=== PATIENT | female | born 1960 | race Caucasian/White ===

== ENCOUNTER 2020-01-31 23:28 | Outpatient (CLI) | payer MEDICAID | END 2020-01-31 23:59 | disposition critical access hospital (66) | LOC: EMS 23:28 | PROVIDERS: ATTEND Surgery | DX: R07.89 Other chest pain (principal) | CPT/HCPCS: A0425; A0427; A0999 ==

== ENCOUNTER 2020-01-31 23:49 | Emergency (ER) | payer MEDICAID ==
[2020-01-31] MEDS ORDERED: ASPIRIN CHEW 81 MG TABLET PO STA (23:56)
--- NOTE | 2020-01-31 23:59 | ED Physician Documentation ---
History of Present Illness - Stated complaint Stated Complaint: CHEST PRESSURE - Additonal information Additional information: This is a 59-year-old female with a history of atrial fibrillation on warfarin, diabetes, hypertension, hyperlipidemia, who presents with chest pressure. Patient has had chest pressure on and off for 3 days, it radiates somewhat to her left shoulder, she sometimes has a feeling of tingling over her left shoulder. The pain resolved this morning but then recurred tonight when she was sitting on the couch watching a movie, so she told her daughter about the pain and they called the nurse hotline who told her to call 911, EMS arrived and transported her here. She received 2 tabs of nitroglycerin in route without any effect on her discomfort. She states she had a stress test around 5 years ago in [place] for similar symptoms and that was negative for signs of coronary artery disease, she did have atrial fibrillation diagnosed after that, and she is on warfarin and diltiazem. She denies any history of WI. She is visiting her daughter, typically she lives in [place]. No fever, cough, leg swelling. Review of Systems Constitutional: denies: Fever Nose: denies: Rhinorrhea / runny nose Throat: denies: Dental pain / toothache Cardiac: reports: Chest pain / pressure Respiratory: denies: Dyspnea GI: denies: Abdominal Pain : denies: Dysuria Neurologic: denies: Generalized weakness PD PAST MEDICAL HISTORY - Past Medical History Cardiovascular: Hypertension, High cholesterol, Atrial fibrillation - Allergies Allergies/Adverse Reactions: Allergies Allergy/AdvReac Type Severity Reaction Status Date / Time No Known Drug Allergies Allergy Verified 01/31/20 23:54 - Living Situation Living Situation: reports: With family Living Arrangement: reports: At home - Social History Does the pt smoke?: No PD ED PE NORMAL - Vitals Vital signs reviewed: Yes - General General: Alert and oriented X 3, No acute distress - HEENT HEENT: PERRL - Neck Neck: Supple, no meningeal sign - Cardiac Cardiac: RRR, No murmur - Respiratory Respiratory: Clear bilaterally - Abdomen Abdomen: Normal bowel sounds, Soft, Non tender, Non distended - Derm Derm: Warm and dry - Extremities Extremities: No deformity - Neuro Neuro: Alert and oriented X 3 - Psych Psych: Normal mood, Normal affect Results - Vitals Vitals: Vital Signs - 24 hr 01/31/20 01/31/2001/31/20 23:54 23:58 00:28 Temperature 37.0 C 37.0 C Heart Rate 83 83 66 Respiratory 16 16 17 Rate Blood Pressure 133/76 H 133/76 H 117/74 O2 Saturation 97 97 97 02/01/20 02/01/20 02/01/20 00:30 01:00 01:30 Temperature Heart Rate 61 73 Respiratory 17 16 Rate Blood Pressure 111/60 105/66 O2 Saturation 96 96 98 02/01/20 02/01/20 02:00 02:30 Temperature Heart Rate 75 62 Respiratory 19 17 Rate Blood Pressure 113/63 110/65 O2 Saturation 96 97 Oxygen O2 Source Room air - EKG (time done) 23:52 Other comments: Other comments (Rate 82, rhythm sinus, There is no significant ST elevation or depression, no abnormal T wave inversions. Intervals are within normal limits.) 2:28 Other comments: Other comments (Rate 71, rhythm sinus, there is no ST segment elevation or depression, no abnormal T wave inversions. Compared to EKG from earlier tonight, there is no significant change.) - Labs Labs: Laboratory Tests 02/01/20 02/01/20 02/01/20 00:30 00:30 00:30 WBC 5.8 RBC 4.44 Hgb 13.3 Hct 40.0 MCV 90.1 MCH 30.0 MCHC 33.3 RDW 13.2 Plt Count 234 MPV 9.5 Neut # (Auto) 2.6 Lymph # (Auto) 2.3 [place] # (Auto) 0.7 Eos # (Auto) 0.2 Baso # (Auto) 0.1 Absolute Nucleated RBC 0.00 Nucleated RBC % 0.0 PT 17.8 H INR 1.6 H Sodium 136 Potassium 4.0 Chloride 104 Carbon Dioxide 22 Anion Gap 10.0 BUN 28 H Creatinine 0.9 Estimated GFR (MDRD) 64 L Glucose 136 H Calcium 9.6 Total Bilirubin 0.4 AST 16 ALT 17 Alkaline Phosphatase 111 Troponin I High Sens Total Protein 7.6 Albumin 4.2 Globulin 3.4 Albumin/Globulin Ratio 1.2 Lipase 37 02/01/20 02/01/20 00:30 02:30 WBC RBC Hgb Hct MCV MCH MCHC RDW Plt Count MPV Neut # (Auto) Lymph # (Auto) [place] # (Auto) Eos # (Auto) Baso # (Auto) Absolute Nucleated RBC Nucleated RBC % PT INR Sodium Potassium Chloride Carbon Dioxide Anion Gap BUN Creatinine Estimated GFR (MDRD) Glucose Calcium Total Bilirubin AST ALT Alkaline Phosphatase Troponin I High Sens 3.0 3.5 Total Protein Albumin Globulin Albumin/Globulin Ratio Lipase - Rads (name of study) CXR Radiology: Other (No acute cardiopulmonary abnormality) PD MEDICAL DECISION MAKING - ED course Complexity details: considered differential (ACS, dysrhythmia, pneumonia, pneumothorax, pulmonary embolism, dissection) ED course: Patient is well-appearing on arrival, her exam is unremarkable, EKG shows no convincing signs of ischemia or dysrhythmia. She was given aspirin, labs were drawn, she was placed on the monitor. CBC unremarkable, CMP likewise unremarkable, her INR is a little low at 1.6, I shared this with the patient and she will follow-up with the provider who manages her anticoagulation to discuss changing her warfarin dose. She has no leg swelling, no tachycardia, normal oxygen saturation and given her anticoagulated status I highly doubt pulmonary embolism. 2 high-sensitivity troponins drawn 2 hours apart are both negative, and a repeat EKG shows no changes from the first. On repeat evaluation patient is pain-free, feeling well, and would like to go home. Given the description of her pain is resolution I highly doubt aortic dissection. Most concerning to me is ACS, and patient does have risk factors for coronary artery disease, and the description of radiation to the shoulder is somewhat concerning as well. More reassuring is the fact that the pain is not linked to exertion, and has been ongoing for 3 days with negative troponins. I discussed admission for further work-up including possible stress test, patient declines, states that she would like to go home and arrange close outpatient follow-up. Her writing manager is in [place], and I explained that may be difficult to get prompt follow-up if she is not established locally, patient understands and plans to establish locally with a PCP and a writing manager. Contact information for local groups was provided. She understands the risks of delayed diagnosis or missed diagnosis including the risk of WI by discharging home, but she does have concerns about coronavirus and does not want to stay in the hospital. She is very well- appearing at this time and certainly has capacity to make this decision. I reviewed return precautions with the patient, reviewed that she is always welcome in the emergency department for further evaluation, and she was discharged home in good condition in accordance with her wishes Departure - Departure Disposition: 01 Home, Self Care Clinical Impression: Chest pain Qualifiers: Chest pain type: unspecified Qualified Code(s): R07.9 - Chest pain, unspecified Condition: Good Follow-Up: [facility] [Provider Group] (Call tomorrow to establish care) [facility] [Other] ([facility] [address] [place] [address], [address] [place] [address] ) Comments: You were seen today for chest pain. Your EKG and labs (including 2 high- sensitivity troponin tests) were reassuring today, I do not see signs of a heart attack or other obvious emergent cause of your pain. As we discussed, you do have risk factors for coronary artery disease, and having a reassuring work-up in the emergency department does not rule out heart disease. If you are having any increased or worsening symptoms, Return to the emergency department for further work-up. You likely will need a another stress test, please contact your writing manager as soon as possible to discuss your symptoms and further work up. If you stay in the area please establish with a PCP and a writing manager locally, I have provided some contact info for providers in the area.
[2020-02-01 00:36] LABS: BASOPHILS # (AUTO) 0.1 10^3/uL (0.0-0.1); BASOPHILS % (AUTO) 0.9 %; EOSINOPHILS # (AUTO) 0.2 10^3/uL (0.0-0.7); EOSINOPHILS % (AUTO) 3.3 %; HGB - HEMOGLOBIN 13.3 g/dL (12.0-16.0); LYMPHOCYTES # (AUTO) 2.3 10^3/uL (1.5-3.5); MEAN CORPUSCULAR HGB CONC 33.3 g/dL (32.0-36.0); MEAN CORPUSCULAR VOLUME 90.1 fL (81.0-99.0); MEAN PLATELET VOLUME 9.5 fL (7.9-10.8); MONOCYTES # (AUTO) 0.7 10^3/uL (0.0-1.0); MONOCYTES % (AUTO) 11.2 %; NEUTROPHILS # (AUTO) 2.6 10^3/uL (1.5-6.6); NEUTROPHILS % (AUTO) 44.4 %; PLT - PLATELET COUNT 234 10^3/uL (130-450); RED BLOOD COUNT 4.44 10^6/uL (4.20-5.40); RED CELL DISTRIBUTION WIDTH 13.2 % (12.0-15.0); WHITE BLOOD COUNT 5.8 x10^3/uL (4.8-10.8)
[2020-02-01 00:43] LABS: INR 1.6 (0.8-1.2); PT - PROTHROMBIN TIME 17.8 secs (9.9-12.6)
[2020-02-01 00:50] LABS: ALBUMIN 4.2 g/dL (3.2-5.5); ALBUMIN/GLOBULIN RATIO 1.2 (1.0-2.2); BILIRUBIN,TOTAL 0.4 mg/dL (0.2-1.0); CALCIUM 9.6 mg/dL (8.5-10.3); CREATININE 0.9 mg/dL (0.4-1.0); TOTAL PROTEIN 7.6 g/dL (6.7-8.2)
--- NOTE | 2020-02-01 01:03 | XRAY Report ---
Reason: Chest Pain Procedure Date: 02/01/2020 Accession Number: [id number] / [id number] Procedure: XR - Chest 1 View X-Ray CPT Code: 69782 Final Report FULL RESULT: EXAM: CHEST RADIOGRAPHY EXAM DATE: 02/01/2020 12:14 AM. CLINICAL HISTORY: Chest Pain. COMPARISON: None. TECHNIQUE: 1 view. FINDINGS: Lungs/Pleura: No significant consolidation, effusion, or definite pneumothorax. Mediastinum: Cardiac silhouette is within normal limits when accounting for lung volumes and technique. Other: Moderate bilateral shoulder degenerative joint disease. IMPRESSION: No acute cardiopulmonary abnormality demonstrated. RADIA
[2020-02-01 02:56] VITALS: BP 110/65
== END 2020-02-01 03:19 | disposition home or self-care (01) ==
LOC: ED 23:49
DX: R07.9 Chest pain, unspecified (principal); I48.91 Unspecified atrial fibrillation; Z79.01 Long term (current) use of anticoagulants; E11.9 Type 2 diabetes mellitus without complications; I10 Essential (primary) hypertension; E78.00 Pure hypercholesterolemia, unspecified
CPT/HCPCS: 36415; 71045; 80053; 83690; 84484; 85025; 85610; 93005; 99284; A9270

== ENCOUNTER 2020-02-14 10:58 | Outpatient (CLI) | payer MEDICAID ==
[2020-02-14 13:17] LABS: INR 2.2 (0.8-1.2); PT - PROTHROMBIN TIME 23.6 secs (9.9-12.6)
[2020-02-14 13:34] LABS: HB2 TOTAL 14.2 g/dL; HEMOGLOBIN A1C 0.69 g/dL; HEMOGLOBIN A1C % 6.6 % (4.6-6.2)
== END 2020-02-14 23:59 | disposition home or self-care (01) ==
LOC: LAB.WCP 10:58
PROVIDERS: ATTEND Nurse Practitioner
DX: E78.5 Hyperlipidemia, unspecified (principal); E11.9 Type 2 diabetes mellitus without complications; Z79.01 Long term (current) use of anticoagulants; I48.91 Unspecified atrial fibrillation
CPT/HCPCS: 36415; 83036; 85610

== ENCOUNTER 2020-03-27 10:48 | Outpatient (CLI) | payer MEDICAID ==
--- NOTE | 2020-04-04 10:54 | Mammography Report ---
BILATERAL DIGITAL SCREENING MAMMOGRAM 3D/2D: 03/27/2020 CLINICAL: Routine screening. No prior exams were available for comparison. There are scattered fibroglandular elements in both br easts. There is an irregular asymmetry with a spiculated margin in the left breast middle depth lateral reji on seen on the craniocaudal view only. There also is a round asymmetry with an obscured margin in the left breast sub-areolar depth central to the nipple seen on the craniocaudal view only. Finding is seen only on tomography. No other significant masses, calcifications, or other findings are seen in either breast. IMPRESSION: INCOMPLETE: NEEDS ADDITIONAL IMAGING EVALUATION The irregular asymmetry in the left breast middle depth lateral region seen on the craniocaudal view only is indeterminate. Additional views with possible ultrasound are recommended. The round asymmetry in the left breast sub-areolar depth central to the nipple seen on the craniocaud al view only is indeterminate. Additional views with possible ultrasound are recommended. This exam was interpreted at Station ID: [id number]. NOTE: For mammograms, a report in lay terms will be sent to the patient. Approximately 15% of breast malignancies will not be visualized mammographically. In the management of a palpable breast mass, a negative mammogram must not discourage biopsy of a clinically suspicious lesion. Electronically Signed By: Valeria [email or web address]/[email or web address]:04/04/2020 09:06:13 ACR BI-RADS Category 0: Incomplete 3340F PARENCHYMAL PATTERN: (A) - The breast(s) demonstrate(s) scattered fibroglandular densities. BI-RADS CATEGORY: (0) - 0 Mammo and [place] [id number] Immediate follow-up LATERALITY: (B)
== END 2020-03-27 10:49 | disposition home or self-care (01) ==
LOC: DI 10:48
PROVIDERS: ATTEND Nurse Practitioner
DX: Z12.31 Encounter for screening mammogram for malignant neoplasm of breast (principal); R92.8 Other abnormal and inconclusive findings on diagnostic imaging of breast
CPT/HCPCS: 77063; 77067

== ENCOUNTER 2020-07-25 11:40 | Outpatient (CLI) | payer MEDICAID ==
[2020-07-25 12:25] VITALS: BP 109/61
--- NOTE | 2020-07-25 12:25 | SLEEP CARE CONSULTATION ---
Information from patient questionnaire entered by Lissa Zepeda. I have reviewed and concur with the information entered by Lissa Zepeda. This document represents the service I personally performed and the decisions made by me, Adwoa Stiles ARNP. History of Present Illness Service Date and Time: 07/25/2020 1140 Reason for Visit: New patient, Previously diagnosed sleep apnea, sleep apnea on CPAP therapy Chief Complaint: reports: Snoring, Observed pauses in breathing. denies: Insomnia, Unrefreshed sleep, Excessive daytime sleepiness, Fatigue, Frequent awakenings at night Date of Onset: 4 years Usual bedtime: 10pm Time it takes to fall asleep: 5-10 minutes Snores at night: Yes Observed to quit breathing while asleep: Yes Sleeps alone due to snoring: No Number of times waking at night: 1 Reasons for waking at night: reports: Bathroom. denies: Choking, Snoring, Gasping for air Toss, Turn, or Twitch while sleeping: Yes Recalls having dreams: Yes Usually gets out of bed at: 10 am Morning headache: No Sleepy or fatigued during the day: Yes Ever fallen asleep while driving: No Takes day naps: No Dreams during day naps: No Prior sleep studies: Yes Year and Where: 2015 - [facility] in [place], [place] Additional HPI information: SHARON GRIGSBY was diagnosed to have unknown, AHI unknown, obstructive sleep apnea-hypopnea syndrome and has come in today to establish care and maintenance of her CPAP therapy. She thinks her pressure is 4 cm H2O. She has been on CPAP since 2016. She has moved here from [place] and is staying with her daughter to help with grandchild. - Parasomnia Symptoms Ever been unable to move upon waking from sleep: No Walks in sleep: No Talks in sleep: No Ever acted out dreams in sleep: No Ever felt weak in the knees when startled or emotional: No Bothered by creepy, crawly, restless sensations in legs: No Problems with memory or concentration: Yes (little of both) CPAP Compliance Data Compliance data discussion: Insurance lapsed, not getting supplies; was getting [employer] medical supplies in [place]. She is using a small full face mask on a Resmed CPAP device. She does not have a back up mask. Subjective Patient concerns: reports: dry mouth, nose, throat (once in a great while, she adjust humidity as needed). denies: aerophagia, mask discomfort, air blowing in eyes, mask leak noise, condensation in mask/hose, nasal congestion, epistaxis, other Observed to snore while using device: No Current pressure setting perceived as: comfortable On therapy, patient: reports: sleeping better, awakening more refreshed, being more awake and alert during the day, more rested overall. denies: drowsiness while driving Initial [place] Sleepiness Scale score: 10 (in 2019) Past Medical History Past Medical History: reports: Hypertension, Diabetes, Arrythmia (atrial fibrillation), Other (A-Fib). denies: Congestive Heart Failure, Coronary Heart Disease, Hypothyroidism, Anemia, Anxiety, Depression, Mood disorder, GERD, Attention deficit Social History The patient's occupation is a Not Employed. Patient is Single and lives in [place]. Have you smoked in the past 12 months: No Alcohol use: No Caffeine use: Yes Caffeine amount and frequency: once a day Family History Family history of sleep disordered breathing: No Family Hx Sleep Apnea: Sibling: Snoring Allergies and Home Medications Drug allergies reviewed: Yes (lisinopril) Home medication list reviewed: Yes Allergy and home medication list: metformin 500 mg bid flecanide 50 mg bid warfarin 5 mg on Thursday thru Thursday, 1/2 pill on Thursday Cartia Xt daily oxybutynin daily losartan 50 mg daily vitamin D3 4000UI bid Review of Systems Weight gain over past 5 years: 21 Weight loss over past 5 years: 25 Cardiovascular: reports: high blood pressure, palpitations, irregular heart rate or pulse Respiratory: denies: shortness of breath, chronic cough Gastrointestinal: denies: heartburn, difficulty swallowing Urinary: reports: incontinence Neurological: denies: headaches, seizure, head trauma, speech dysfunction, gait or balance problems Psychiatric: reports: claustrophobia (little bit). denies: Attention Deficit Hyperactivity, anxiety, depression, mood disorder Ear/Nose/Throat: reports: dry mouth/throat (rarely), wisdom teeth removed. denies: nasal congestion, sinus problems, nose bleeds, injury to nose, tonsillectomy Endocrine: denies: thyroid disease Musculoskeletal: reports: joint pain, mobility problems Immunologic: reports: allergies to food or environment (tree nuts (walnuts), victor beans) Physical Exam Blood Pressure: 109/61 Cuff size: wrist Heart Rate: 64 O2 Saturation: 98 Height: 4 ft 11 in Weight: 178 lb Body Mass Index: 35.9 BMI Classification: Obese Neck circumference: 15 (inches) HEENT: No craniofacial malformation Nostrils: patent to airflow Turbinates: swollen Septum: midline Mouth and throat: narrow oropharynx Soft palate: normal Hard palate: normal Uvula: normal Uvula visualization: 50% Mallampati Class II Tongue: enlarged in size with teeth rogers on lateral edges Tonsils: 2+ Chin and jaw: normal size and position Neck: normal w/o lymphadenopathy or thyromegaly Heart: irregular rhythm Lungs: clear bilaterally Impression and Plan 1. Obstructive Sleep Apnea-Hypopnea Syndrome, unknown, with unknown treatment compliance and unknown apnea control. On CPAP therapy, the patient has better sleep quality and is more rested overall. I advised patient that we need a copy of her last sleep study and her compliance information from her machine to write for supplies. She is having her daughter bring the memory chip here and will request the sleep study. If her compliance is good with good apnea control and we get a copy of her sleep study we can update her supplies and see her for an annual follow up. Patient's apnea severity and rationale for treatment to reduce apnea, improve sleep quality and reduce cardiovascular and cerebrovascular events was reviewed. I also reviewed the benefit of consistent device use of CPAP for hypertension, arrhythmia, and diabetes. * Obtain copy of sleep study and bring or have faxed to clinic * Obtain compliance information from patient memory chip * Notify me if snoring with mask or feeling that the pressure is too much or too little * Attempt to lose weight * Call this office if any problems using CPAP * Return for follow up in a year if compliance information adequate and sleep study obtained, or sooner if concerns arise Counseling Topics: Spare mask, Weight loss health impact Time Spent with Patient (minutes): 35
== END 2020-07-25 11:41 | disposition home or self-care (01) ==
LOC: SC 11:40
PROVIDERS: ATTEND Nurse Practitioner Family
DX: G47.33 Obstructive sleep apnea (adult) (pediatric) (principal); E66.9 Obesity, unspecified; Z68.35 Body mass index [BMI] 35.0-35.9, adult
CPT/HCPCS: 99203; 99212

== ENCOUNTER 2020-08-11 22:45 | Outpatient (CLI) | payer MEDICAID | END 2020-08-11 22:46 | disposition critical access hospital (66) | LOC: EMS 22:45 | PROVIDERS: ATTEND Surgery | DX: R07.9 Chest pain, unspecified (principal); M25.512 Pain in left shoulder | CPT/HCPCS: A0425; A0429; A0999 ==

== ENCOUNTER 2020-08-11 23:03 | Emergency (ER) | payer MEDICAID ==
--- NOTE | 2020-08-11 23:12 | ED Physician Documentation ---
PD HPI CHEST PAIN - Stated complaint Stated Complaint: CP - Chief complaint Chief Complaint: Cardiac - History obtained from History obtained from: Patient, EMS - History of Present Illness Timing - onset: Enter time (22:00) Timing - onset during: Rest Timing - details: Abrupt onset Pain level max: 5 Pain level now: 0 Quality: Aching, Pain Location: Substernal Radiation: Back Improved by: Nothing (resolved spontaneously) Worsened by: Other (no apparent inciting nor exacerbating factors) Similar symptoms before: No diagnosis Recently seen: Not recently seen - Additional information Additional information: BIBA. c/o midline chest pain and sensation of bloating that radiated through to her back, onset 10 PM while at home at rest. this lasted a few minutes and seemed to resolve rapidly after standing up. denies dyspnea, nausea. She says she had an unremarkable stress test within past 1-2 months Review of Systems Constitutional: reports: Reviewed and negative Cardiac: reports: Chest pain / pressure. denies: Palpitations, Pedal edema, Calf pain Respiratory: reports: Reviewed and negative GI: reports: Reviewed and negative : denies: Dysuria, Frequency PD PAST MEDICAL HISTORY - Past Medical History Cardiovascular: Hypertension, High cholesterol, Atrial fibrillation Endocrine/Autoimmune: Type 2 diabetes - Allergies Allergies/Adverse Reactions: Allergies Allergy/AdvReac Type Severity Reaction Status Date / Time No Known Drug Allergies Allergy Verified 08/11/20 23:11 - Social History Does the pt smoke?: No Smoking Status: Never smoker Does the pt drink ETOH?: No Does the pt have substance abuse?: No - Immunizations Immunizations are current?: Yes - POLST Patient has POLST: No PD ED PE NORMAL - Vitals Vital signs reviewed: Yes - General General: Alert and oriented X 3, No acute distress, Well developed/nourished - HEENT HEENT: Moist mucous membranes - Neck Neck: Supple, no meningeal sign - Cardiac Cardiac: RRR, No murmur, No gallop, No rub - Respiratory Respiratory: No respiratory distress, Clear bilaterally - Abdomen Abdomen: Soft, Non tender - Back Back: No CVA TTP - Derm Derm: Normal color, Warm and dry, No rash - Extremities Extremities: No edema Results - Vitals Vitals: Vital Signs - 24 hr 08/11/20 08/11/20 08/12/20 23:04 23:30 01:06 PDT Temperature 36.8 C Heart Rate 71 69 70 Respiratory 16 18 20 Rate Blood Pressure 131/69 H 111/56 L 121/62 O2 Saturation 100 98 99 08/12/20 01:52 PDT Temperature Heart Rate 78 Respiratory 16 Rate Blood Pressure 128/79 O2 Saturation 99 Oxygen O2 Source Room air - EKG (time done) #1 Rate: Rate (enter#) (67) Rhythm: NSR Nelson: Normal Intervals: Normal [place] QRS: Normal Ischemia: Normal ST segments #2 Rate: Rate (enter#) (68) Rhythm: NSR [place]: Normal Intervals: Normal [place] QRS: Normal Ischemia: Normal ST segments - Labs Labs: Laboratory Tests 08/11/20 08/11/20 08/11/20 23:10 23:10 23:10 WBC 6.7 RBC 4.34 Hgb 12.8 Hct 39.4 MCV 90.8 MCH 29.5 MCHC 32.5 RDW 13.2 Plt Count 231 MPV 9.7 Neut # (Auto) 3.1 Lymph # (Auto) 2.5 [place] # (Auto) 0.8 Eos # (Auto) 0.2 Baso # (Auto) 0.0 Absolute Nucleated RBC 0.00 Nucleated RBC % 0.0 Sodium 141 Potassium 3.8 Chloride 104 Carbon Dioxide 27 Anion Gap 10.0 BUN 19 Creatinine 0.7 Estimated GFR (MDRD) 86 L Glucose 105 H Calcium 10.1 Total Bilirubin 0.4 AST 15 ALT 17 Alkaline Phosphatase 96 Troponin I High Sens 3.5 Total Protein 7.5 Albumin 4.2 Globulin 3.3 Albumin/Globulin Ratio 1.3 Lipase 33 - Rads (name of study) chest xray Radiology: Prelim report reviewed, See rad report PD MEDICAL DECISION MAKING - ED course Complexity details: reviewed old records, reviewed results, re-evaluated patient, considered differential, d/w patient Departure - Departure Disposition: Home, Self Care Clinical Impression: Chest pain Qualifiers: Chest pain type: unspecified Qualified Code(s): R07.9 - Chest pain, unspecified Condition: Good Instructions: ED Chest Pain Atypical Unkn Cause Comments: Follow up with your primary health care provider; call Thursday to arrange for next available appointment Discharge Date/Time: 08/12/20 01:58 PDT
[2020-08-11 23:23] LABS: BASOPHILS % (AUTO) 0.6 %; EOSINOPHILS # (AUTO) 0.2 10^3/uL (0.0-0.7); EOSINOPHILS % (AUTO) 3.3 %; HGB - HEMOGLOBIN 12.8 g/dL (12.0-16.0); LYMPHOCYTES # (AUTO) 2.5 10^3/uL (1.5-3.5); MEAN CORPUSCULAR HEMOGLOBIN 29.5 pg (27.0-31.0); MEAN CORPUSCULAR HGB CONC 32.5 g/dL (32.0-36.0); MEAN CORPUSCULAR VOLUME 90.8 fL (81.0-99.0); MEAN PLATELET VOLUME 9.7 fL (7.9-10.8); MONOCYTES # (AUTO) 0.8 10^3/uL (0.0-1.0); MONOCYTES % (AUTO) 12.6 %; NEUTROPHILS # (AUTO) 3.1 10^3/uL (1.5-6.6); NEUTROPHILS % (AUTO) 46.2 %; PLT - PLATELET COUNT 231 10^3/uL (130-450); RED BLOOD COUNT 4.34 10^6/uL (4.20-5.40); RED CELL DISTRIBUTION WIDTH 13.2 % (12.0-15.0); WHITE BLOOD COUNT 6.7 x10^3/uL (4.8-10.8)
[2020-08-11 23:36] LABS: ALBUMIN 4.2 g/dL (3.2-5.5); ALBUMIN/GLOBULIN RATIO 1.3 (1.0-2.2); BILIRUBIN,TOTAL 0.4 mg/dL (0.2-1.0); CALCIUM 10.1 mg/dL (8.5-10.3); CREATININE 0.7 mg/dL (0.4-1.0); TOTAL PROTEIN 7.5 g/dL (6.7-8.2)
[2020-08-12 01:53] VITALS: BP 128/79
--- NOTE | 2020-08-12 08:27 | XRAY Report ---
PROCEDURE: Chest 1 View X-Ray INDICATIONS: Chest pain TECHNIQUE: One view of the chest was acquired. COMPARISON: 01/31/2020 FINDINGS: Surgical changes and devices: A right axillary clips can be seen. Lungs and pleura: No pleural effusions or pneumothorax. Lungs are clear. Mediastinum: Mediastinal contours appear normal. Heart size is normal. Bones and chest wall: No suspicious bony lesions. Degenerative changes are seen, particularly invol ving the shoulders Overlying soft tissues appear unremarkable. IMPRESSION: Portable chest within normal limits for age. Note: No significant discrepancy from the preliminary report. Reviewed by: Parish Lino MD on 08/12/2020 7:26 AM [facility] Approved by: Parish Lino MD on 08/12/2020 7:26 AM [facility] Station ID: [id number]
== END 2020-08-12 01:58 | disposition home or self-care (01) ==
LOC: EDUNIT# → ED 23:03
DX: R07.89 Other chest pain (principal); M54.9 Dorsalgia, unspecified; I10 Essential (primary) hypertension; E11.9 Type 2 diabetes mellitus without complications
CPT/HCPCS: 36415; 71045; 80053; 83690; 84484; 85025; 93005; 99284

== ENCOUNTER 2020-09-14 11:51 | Outpatient (CLI) | payer MEDICAID ==
[2020-09-14 18:06] LABS: BASOPHILS % (AUTO) 0.8 %; EOSINOPHILS # (AUTO) 0.1 10^3/uL (0.0-0.7); EOSINOPHILS % (AUTO) 2.1 %; HGB - HEMOGLOBIN 12.9 g/dL (12.0-16.0); LYMPHOCYTES # (AUTO) 1.6 10^3/uL (1.5-3.5); LYMPHOCYTES % (AUTO) 29.3 %; MEAN CORPUSCULAR HEMOGLOBIN 28.8 pg (27.0-31.0); MEAN CORPUSCULAR HGB CONC 30.6 g/dL (32.0-36.0); MEAN PLATELET VOLUME 10.4 fL (7.9-10.8); MONOCYTES # (AUTO) 0.5 10^3/uL (0.0-1.0); NEUTROPHILS # (AUTO) 3.1 10^3/uL (1.5-6.6); NEUTROPHILS % (AUTO) 58.4 %; PLT - PLATELET COUNT 251 10^3/uL (130-450); RED BLOOD COUNT 4.48 10^6/uL (4.20-5.40); RED CELL DISTRIBUTION WIDTH 13.7 % (12.0-15.0); WHITE BLOOD COUNT 5.3 x10^3/uL (4.8-10.8)
[2020-09-14 19:00] LABS: CREATININE,URINE 156.5 mg/dL; MICROALBUM/CREATININE RATIO,UR 2.6 ug/mg (<30.0); MICROALBUMIN,URINE 0.4 mg/dL (0-300.0)
[2020-09-14 19:02] LABS: ALBUMIN 4.3 g/dL (3.2-5.5); ALBUMIN/GLOBULIN RATIO 1.2 (1.0-2.2); ALKALINE PHOSPHATASE 88 IU/L (42-121); ALT ALANINE AMINOTRANSFERASE 17 IU/L (10-60); AST ASPARTATE AMINOTRANSFERASE 19 IU/L (10-42); BILIRUBIN,TOTAL 0.6 mg/dL (0.2-1.0); BUN - BLOOD UREA NITROGEN 14 mg/dL (6-20); CALCIUM 10.1 mg/dL (8.5-10.3); CARBON DIOXIDE - CO2 27 mmol/L (21-32); CHLORIDE 104 mmol/L (101-111); CHOL/HDL RATIO 3.7 (<4.4); CHOLESTEROL 142 mg/dL; CREATININE 0.8 mg/dL (0.4-1.0); GLUCOSE 132 mg/dL (70-100); HDL CHOLESTEROL 38 mg/dL; LDL CHOLESTEROL,CALCULATED 73 mg/dL; LDL/HDL RATIO 1.9 (<4.4); SODIUM 140 mmol/L (135-145); TOTAL PROTEIN 7.8 g/dL (6.7-8.2); VLDL CHOLESTEROL 31 mg/dL
[2020-09-14 19:43] LABS: HEMOGLOBIN A1c% 6.4 % (4.27-6.07)
== END 2020-09-14 11:52 | disposition home or self-care (01) ==
LOC: LAB.WCP 11:51
PROVIDERS: ATTEND Nurse Practitioner
DX: G47.33 Obstructive sleep apnea (adult) (pediatric) (principal); E11.9 Type 2 diabetes mellitus without complications; I10 Essential (primary) hypertension; Z79.01 Long term (current) use of anticoagulants; I48.91 Unspecified atrial fibrillation; E78.5 Hyperlipidemia, unspecified
CPT/HCPCS: 36415; 80053; 80061; 82043; 82570; 83036; 83721; 84443; 85025

== ENCOUNTER 2020-09-19 11:29 | Outpatient (CLI) | payer MEDICAID ==
--- NOTE | 2020-09-19 12:30 | XRAY Report ---
PROCEDURE: Knee Standing BILAT INDICATIONS: KNEE JOINT PAIN BILATERAL TECHNIQUE: 3 views of the right knee, and 3 views of the left knee. COMPARISON: None. FINDINGS: On the right, scattered degenerative spurring and sclerosis.Mild narrowing of the medial joint space No joint effusion. On the left, scattered degenerative spurring and sclerosis. No joint effusion. No definite joint spac e narrowing. IMPRESSION: Mild bilateral knee joint generation, right greater than left. Reviewed by: Royce Fong MD on 09/19/2020 12:28 PM PST Approved by: Royce Fong MD on 09/19/2020 12:28 PM PST Station ID: [id number]
== END 2020-09-19 11:30 | disposition home or self-care (01) ==
LOC: DI 11:29
PROVIDERS: ATTEND Nurse Practitioner
DX: M17.0 Bilateral primary osteoarthritis of knee (principal)

== ENCOUNTER 2021-03-15 10:03 | Outpatient (CLI) | payer MEDICAID ==
--- NOTE | 2021-03-15 10:31 | SLEEP CARE CONSULTATION ---
Information from patient questionnaire entered by Lissa Zepeda. I have reviewed and concur with the information entered by Lissa Zepeda. This document represents the service I personally performed and the decisions made by me, Adwoa Stiles ARNP. History of Present Illness Service Date and Time: 03/15/2021 1003 Previous diagnosis: Severe, Obstructive Sleep Apnea-Hypopnea Syndrome AHI: 43.2 (in 2016) Reason for follow up: other (8 month, wants new machine) Equipment type: CPAP Equipment obtained from: Other ([facility]; got supplies that do not fit her older machine) Mask style: Full face Backup mask available: No (need supplies) Last cushion change: 8 months Prior sleep studies: Yes Year and Where: 2016 - [facility] in [facility] additional information: SHARON GRIGSBY was diagnosed to have severe, AHI 43.2, obstructive sleep apnea-hypopnea syndrome and returned today for CPAP therapy eight month follow- up. CPAP Compliance Data - Data Reviewed with Patient Average duration of nightly device use: 6 hr 5 min Compliance rate %: 93 (180 days) Current pressure setting (cmH2O): 7-16 Humidity settin Average residual AHI: 0.5 Subjective Patient concerns: reports: mask discomfort (from getting worn out, tube sometimes comes loose), dry mouth, nose, throat (water chamber did not fit, cannot use). denies: aerophagia, air blowing in eyes, mask leak noise, condensation in mask/hose, nasal congestion, epistaxis, other Observed to snore while using device: No Current pressure setting perceived as: comfortable On therapy, patient: reports: sleeping better, awakening more refreshed, being more awake and alert during the day, more rested overall. denies: drowsiness while driving Initial [place] Sleepiness Scale score: 10 (in 2020) Current [place] Sleepiness Scale score: 9 Allergies and Home Medications Home medication list reviewed: Yes (no new meds) Review of Systems Review of systems same as previous: Yes (no changes) Physical Exam Heart Rate: 70 O2 Saturation: 98 Height: 4 ft 11 in Weight: 180 lb Body Mass Index: 36.3 BMI Classification: Obese Impression and Plan 1. Obstructive Sleep Apnea-Hypopnea Syndrome, severe, with good treatment compliance and good apnea control. On CPAP therapy, the patient has better sleep quality and is more rested overall. She has been having mask issues just because she needs supplies and has not been getting replacements. She has also had some oral dryness because the humidity chamber on her machine may not be working properly. She was told by [facility] that her machine is over 5 years old and that she is eligible to have it replaced. She got a few replacement supplies from them but the water chamber they sent her does not fit into the machine. The patients CPAP is over 5 years old and of reasonable use. Thus, the CPAP will be updated. The new CPAPs also have a better humidity system which could assist control of patients dryness symptoms. A DWO prescription will be made. Compliance guidelines for new device and follow up discussed. She voiced understanding and agreement with plan of care. Patient's apnea severity and rationale for treatment to reduce apnea, improve sleep quality and reduce cardiovascular and cerebrovascular events was reviewed. I also reviewed the benefit of consistent device use of CPAP for hypertension, arrhythmia (atrial fibrillation), and diabetes. * Continue auto CPAP pressure at 7-16 cmH2O * Update CPAP machine * Notify me if snoring with mask or feeling that the pressure is too much or too little * Attempt to lose weight * Call this office if any problems using CPAP * Return for follow up in one month after getting new machine, or sooner if concerns arise Counseling Topics: Spare mask, Weight loss health impact Visit Type: In Office Time Spent with Patient (minutes): 21 Provider Statement: I spent 100% of the Face to Face Visit with the patient with greater than 50% spent counseling the patient and coordination of care.
== END 2021-03-15 10:04 | disposition home or self-care (01) ==
LOC: SC 10:03
PROVIDERS: ATTEND Nurse Practitioner Family
DX: G47.33 Obstructive sleep apnea (adult) (pediatric) (principal); E66.9 Obesity, unspecified; Z68.36 Body mass index [BMI] 36.0-36.9, adult
CPT/HCPCS: 99212; 99213

== ENCOUNTER 2021-08-21 10:43 | Outpatient (CLI) | payer MEDICAID ==
[2021-08-21 11:32] VITALS: BP 133/73
--- NOTE | 2021-08-21 11:32 | SLEEP CARE CONSULTATION ---
Information from patient questionnaire entered by Stephanie Gamble MA. I have reviewed and concur with the information entered by Stephanie Gamble MA. This document represents the service I personally performed and the decisions made by , Adwoa Stiles ARNP. History of Present Illness Service Date and Time: 08/21/2021 1043 Previous diagnosis: Severe, Obstructive Sleep Apnea-Hypopnea Syndrome AHI: 43.2 (in 2015) Reason for follow up: first compliance (07/18 ), first compliance after device update Equipment type: CPAP Equipment obtained from: Other ([facility]; got new machine, still needs new mask) Mask style: Full face Backup mask available: No (needs supplies) Last cushion change: 2+ months Prior sleep studies: Yes Year and Where: 2016 - [facility] in [place], [place] HPI additional information: SHARON GRIGSBY was diagnosed to have severe, AHI 43.2, obstructive sleep apnea-hypopnea syndrome and returned today for CPAP therapy first compliance after updating device follow-up. Sleep Study - Results Prior sleep studies: Yes Year and Where: 2016 - [facility] in [place], [place] CPAP Compliance Data - Data Reviewed with Patient Average duration of nightly device use: 5 hours 49 minutes Compliance rate %: 90 Current pressure setting (cmH2O): 7-16 Average residual AHI: 1.4 Central apnea: .1 Obstructive apnea: .9 Subjective Patient concerns: reports: dry mouth, nose, throat. denies: aerophagia, mask discomfort, air blowing in eyes, mask leak noise, condensation in mask/hose, nasal congestion, epistaxis, other Observed to snore while using device: No Current pressure setting perceived as: comfortable On therapy, patient: reports: sleeping better, awakening more refreshed, being more awake and alert during the day, more rested overall. denies: drowsiness while driving Initial [place] Sleepiness Scale score: 10 (in 2019) Current [place] Sleepiness Scale score: 9 (2020) Allergies and Home Medications Home medication list reviewed: Yes (2 meds changed but does not remember names) Review of Systems Review of systems same as previous: Yes (no changes) Physical Exam Vital signs obtained and entered by: Mavis SOFIA Blood Pressure: 133/73 (left) Cuff size: wrist Heart Rate: 75 O2 Saturation: 96 (with double sided mask) Height: 4 ft 11 in Weight: 176 lb (with boots) Weight change since last visit: 4 lb loss Body Mass Index: 35.5 BMI Classification: Obese Impression and Plan 1. Obstructive Sleep Apnea-Hypopnea Syndrome, severe, with good treatment compliance and good apnea control. On CPAP therapy, the patient has better sleep quality and is more rested overall. She states that she occasionally gets some dry mouth. Oral dryness can be reduced by adjusting humidity setting higher or heated hose lower or by adjusting both settings. Printed instructions given on how to change humidity and heated hose settings with rationale explaining why to change. Patient advised that chronic oral dryness can affect dental health. Patient's apnea severity and rationale for treatment to reduce apnea, improve sleep quality and reduce cardiovascular and cerebrovascular events was reviewed. I also reviewed the benefit of consistent device use of CPAP for hypertension, arrhythmia and diabetes. * Continue auto CPAP pressure at 7-16 cmH2O * Notify me if snoring with mask or feeling that the pressure is too much or too little * Attempt to lose weight * Call this office if any problems using CPAP * Return for follow up in 1 year, or sooner if concerns arise Counseling Topics: Spare mask, Weight loss health impact Visit Type: In Office Time Spent with Patient (minutes): 20 Provider Statement: I spent 100% of the Face to Face Visit with the patient with greater than 50% spent counseling the patient and coordination of care.
== END 2021-08-21 10:44 | disposition home or self-care (01) ==
LOC: SC 10:43
PROVIDERS: ATTEND Nurse Practitioner Family
DX: G47.33 Obstructive sleep apnea (adult) (pediatric) (principal); E66.9 Obesity, unspecified; Z68.35 Body mass index [BMI] 35.0-35.9, adult
CPT/HCPCS: 99212; 99213

== ENCOUNTER 2021-10-25 07:00 | Outpatient (CLI) | payer MEDICAID ==
[2021-10-25 18:06] LABS: BASOPHILS # (AUTO) 0.1 10^3/uL (0.0-0.1); BASOPHILS % (AUTO) 0.9 %; EOSINOPHILS # (AUTO) 0.2 10^3/uL (0.0-0.7); EOSINOPHILS % (AUTO) 3.5 %; HCT - HEMATOCRIT 41.2 % (37.0-47.0); LYMPHOCYTES # (AUTO) 1.9 10^3/uL (1.5-3.5); LYMPHOCYTES % (AUTO) 32.7 %; MEAN CORPUSCULAR HEMOGLOBIN 28.3 pg (27.0-31.0); MEAN CORPUSCULAR HGB CONC 31.6 g/dL (32.0-36.0); MEAN CORPUSCULAR VOLUME 89.8 fL (81.0-99.0); MEAN PLATELET VOLUME 10.7 fL (7.9-10.8); MONOCYTES # (AUTO) 0.6 10^3/uL (0.0-1.0); MONOCYTES % (AUTO) 10.1 %; NEUTROPHILS % (AUTO) 52.6 %; PLT - PLATELET COUNT 260 10^3/uL (130-450); RED BLOOD COUNT 4.59 10^6/uL (4.20-5.40); WHITE BLOOD COUNT 5.7 x10^3/uL (4.8-10.8)
[2021-10-25 18:28] LABS: ALT ALANINE AMINOTRANSFERASE 18 IU/L (10-60); AST ASPARTATE AMINOTRANSFERASE 18 IU/L (10-42); BILIRUBIN,TOTAL 0.6 mg/dL (0.2-1.0); BUN - BLOOD UREA NITROGEN 16 mg/dL (6-20); CALCIUM 9.9 mg/dL (8.5-10.3); CARBON DIOXIDE - CO2 27 mmol/L (21-32); CHLORIDE 101 mmol/L (101-111); CREATININE 0.8 mg/dL (0.4-1.0); GFR - MDRD 73 (>89); GLUCOSE 132 mg/dL (70-100); SODIUM 137 mmol/L (135-145)
[2021-10-25 18:29] LABS: ALBUMIN/GLOBULIN RATIO 1.1 (1.0-2.2); ALKALINE PHOSPHATASE 102 IU/L (42-121); CHOL/HDL RATIO 3.8 (<4.4); CHOLESTEROL 138 mg/dL; HDL CHOLESTEROL 36 mg/dL; LDL CHOLESTEROL,CALCULATED 74 mg/dL; LDL/HDL RATIO 2.1 (<4.4); TOTAL PROTEIN 7.6 g/dL (6.7-8.2); TRIGLYCERIDES 140 mg/dL; VLDL CHOLESTEROL 28 mg/dL
[2021-10-25 18:37] LABS: THYROID STIMULATING HORMONE 0.71 uIU/mL (0.34-5.60)
[2021-10-25 20:01] LABS: ESTIMATED AVERAGE GLUCOSE 151 mg/dL (70-100); HEMOGLOBIN A1c% 6.9 % (4.27-6.07)
== END 2021-10-25 23:59 | disposition home or self-care (01) ==
LOC: LAB.WCP 07:00
PROVIDERS: ATTEND Family Medicine
DX: I10 Essential (primary) hypertension (principal); E78.5 Hyperlipidemia, unspecified; E11.9 Type 2 diabetes mellitus without complications; Z79.899 Other long term (current) drug therapy
CPT/HCPCS: 36415; 80053; 80061; 83036; 83721; 84443; 85025

== ENCOUNTER 2022-10-15 11:19 | Outpatient (CLI) | payer MEDICAID ==
[2022-10-15 18:15] LABS: BASOPHILS # (AUTO) 0.1 10^3/uL (0.0-0.1); BASOPHILS % (AUTO) 0.8 %; EOSINOPHILS # (AUTO) 0.1 10^3/uL (0.0-0.7); EOSINOPHILS % (AUTO) 2.2 %; HCT - HEMATOCRIT 41.7 % (37.0-47.0); LYMPHOCYTES # (AUTO) 2.5 10^3/uL (1.5-3.5); LYMPHOCYTES % (AUTO) 42.1 %; MEAN CORPUSCULAR HEMOGLOBIN 28.3 pg (27.0-31.0); MEAN CORPUSCULAR HGB CONC 31.2 g/dL (32.0-36.0); MEAN CORPUSCULAR VOLUME 90.7 fL (81.0-99.0); MEAN PLATELET VOLUME 10.3 fL (7.9-10.8); MONOCYTES # (AUTO) 0.6 10^3/uL (0.0-1.0); MONOCYTES % (AUTO) 10.5 %; NEUTROPHILS # (AUTO) 2.6 10^3/uL (1.5-6.6); NEUTROPHILS % (AUTO) 44.2 %; PLT - PLATELET COUNT 272 10^3/uL (130-450); RED CELL DISTRIBUTION WIDTH 14.1 % (12.0-15.0); WHITE BLOOD COUNT 5.9 x10^3/uL (4.8-10.8)
[2022-10-15 19:19] LABS: MICROALBUM/CREATININE RATIO,UR 7.6 ug/mg (<30.0); MICROALBUMIN,URINE 0.6 mg/dL (0-300.0)
[2022-10-15 20:51] LABS: ALBUMIN 4.1 g/dL (3.2-5.5); ALBUMIN/GLOBULIN RATIO 1.1 (1.0-2.2); ALKALINE PHOSPHATASE 119 IU/L (42-121); ALT ALANINE AMINOTRANSFERASE 16 IU/L (10-60); AST ASPARTATE AMINOTRANSFERASE 16 IU/L (10-42); BILIRUBIN,TOTAL 0.4 mg/dL (0.2-1.0); BUN - BLOOD UREA NITROGEN 15 mg/dL (6-20); CALCIUM 10.1 mg/dL (8.5-10.3); CARBON DIOXIDE - CO2 28 mmol/L (21-32); CHLORIDE 101 mmol/L (101-111); CHOL/HDL RATIO 3.4 (<4.4); CHOLESTEROL 154 mg/dL; CREATININE 0.7 mg/dL (0.4-1.0); GFR - MDRD 85 (>89); GLUCOSE 111 mg/dL (70-100); HDL CHOLESTEROL 45 mg/dL; LDL CHOLESTEROL,CALCULATED 77 mg/dL; LDL/HDL RATIO 1.7 (<4.4); POTASSIUM 4.1 mmol/L (3.5-5.0); SODIUM 138 mmol/L (135-145); TOTAL PROTEIN 7.9 g/dL (6.7-8.2); TRIGLYCERIDES 159 mg/dL; VLDL CHOLESTEROL 32 mg/dL
[2022-10-15 22:06] LABS: ESTIMATED AVERAGE GLUCOSE 151 mg/dL (70-100); HEMOGLOBIN A1c% 6.9 % (4.27-6.07)
== END 2022-10-15 11:20 | disposition home or self-care (01) ==
LOC: LAB.N 11:19
PROVIDERS: ATTEND Family Medicine
DX: E11.9 Type 2 diabetes mellitus without complications (principal)
CPT/HCPCS: 36415; 80053; 80061; 82043; 82570; 83036; 83721; 85025

== ENCOUNTER 2023-10-14 13:56 | Outpatient (CLI) | payer MEDICAID ==
--- NOTE | 2023-10-14 17:34 | XRAY Report ---
PROCEDURE: Knee 3V BL INDICATIONS: RIGHT KNEE JOINT PAIN TECHNIQUE: 4 views of the knee(s) were acquired. COMPARISON: None. FINDINGS: Bones: No fractures or dislocations. Right worse than left bilateral tricompartmental osteoarthritis is seen more notably in medial femoral tibial compartment and patellofemoral compartment of right kn ee. No patella subluxation. No suspicious bony lesions. Soft tissues: No knee joint effusion. No suspicious soft tissue calcifications or masses. IMPRESSION: Right worse than left bilateral tricompartmental osteoarthritis as above. No fracture or dislocation. No significant joint effusion. Reviewed by: Hiren Carrington MD on 10/14/2023 5:33 PM PST Approved by: Hiren Carrington MD on 10/14/2023 5:33 PM PST Station ID: [id number]
== END 2023-10-14 13:57 | disposition home or self-care (01) ==
LOC: DI 13:56
PROVIDERS: ATTEND Nurse Practitioner Family
DX: M17.11 Unilateral primary osteoarthritis, right knee (principal)

== ENCOUNTER 2023-11-25 13:47 | Outpatient (CLI) | payer MEDICAID ==
--- NOTE | 2023-11-25 14:16 | Sleep Patient Instructions ---
Sleep Center Visit Summary - Patient Visit Information Reason for Visit: Annual Follow up - Patient Instructions Additional Instructions: You will continue with CPAP therapy with pressure set at 7-16 cmH2O. A supply prescription will be updated with your DME. We encourage you to continue to try to lose weight. Please follow up with the sleep care office in 1 year. - Clinic Information Contact: [facility] [address] [place] [address] [email or web address] T: [phone]
[2023-11-25 14:20] VITALS: BP 122/64; O2SAT 95
--- NOTE | 2023-11-25 14:20 | SLEEP CARE CONSULTATION ---
Information from patient questionnaire entered by Morris Talbert. I have reviewed and concur with the information entered by Morris Talbert. This document represents the service I personally performed and the decisions made by me, Adwoa Stiles ARNP. History of Present Illness Service Date and Time: 11/25/2023 1347 Previous diagnosis: Severe, Obstructive Sleep Apnea-Hypopnea Syndrome AHI: 43.2 (in 2015) Reason for follow up: annual (LAST SEEN 10/2021) Equipment type: CPAP (RESMED Airsense 11; 06/2021) Equipment obtained from: Other ([facility]; getting supplies) Mask style: Full face Backup mask available: Yes Last cushion change: 2 months Prior sleep studies: Yes Year and Where: 2015 - [facility] in [facility] additional information: SHARON GRIGSBY was diagnosed to have severe, AHI 43.2, obstructive sleep apnea-hypopnea syndrome and returned today for CPAP therapy annual follow-up. Sleep Study - Results Prior sleep studies: Yes Year and Where: 2016 - [facility] in [place], [place] CPAP Compliance Data - Data Reviewed with Patient Average duration of nightly device use: 05 HRS 39 MINS Compliance rate %: 82 (11/23/22-11/22/23; 353/365 days used) Current pressure setting (cmH2O): 7-16 Average residual AHI: 1.0 Central apnea: 0.1 Obstructive apnea: 0.6 Hypopnea: 0.3 Average large leak: 0.3 L/min Subjective Missed days of use due to: reports: mask issues, other (fall asleep without it) Patient concerns: reports: air blowing in eyes (occasional), dry mouth, nose, throat (dry nose). denies: aerophagia, mask discomfort, mask leak noise, condensation in mask/hose, nasal congestion, epistaxis Observed to snore while using device: No Current pressure setting perceived as: comfortable On therapy, patient: reports: sleeping better, awakening more refreshed, being more awake and alert during the day, more rested overall. denies: drowsiness while driving Initial [place] Sleepiness Scale score: 10 (in 2019) Current [place] Sleepiness Scale score: 12 (11/25/23) Allergies and Home Medications Known drug allergies: Yes (as listed) Drug allergies reviewed: Yes Home medication list reviewed: Yes (no changes) Allergy and home medication list: Allergies tree nut Allergy (Verified 11/23/23 10:15) Anaphylaxis walnut Allergy (Verified 11/23/23 10:15) Anaphylaxis lisinopril Adverse Reaction (Verified 11/23/23 10:15) cough Review of Systems Review of systems same as previous: Yes (no changes) Physical Exam Vital signs obtained and entered by: MORRIS Yates MA Blood Pressure: 122/64 (LEFT ARM) Cuff size: regular Heart Rate: 79 O2 Saturation: 95 Height: 4 ft 11 in Weight: 174 lb 12.8 oz Weight change since last visit: 2 lb gain Body Mass Index: 35.3 BMI Classification: Obese Impression and Plan 1. Obstructive Sleep Apnea-Hypopnea Syndrome, severe, with good treatment c ompliance and good apnea control. On CPAP therapy, the patient has better sleep quality and is more rested overall. Patient has significant improvement of their sleep apnea and is satisfied with current CPAP therapy. She does get a little bit of dry nose, mouth and she is drinking water through the night. She thinks is from the medications she has to take and not from the CPAP. She is using her humidifier and she did try to turn the humidity up once but it caused condensation in the mask. I discussed with her how to adjust using the heated hose and she voiced understanding. Patient's apnea severity and rationale for treatment to reduce apnea, improve sleep quality and reduce cardiovascular and cerebrovascular events was reviewed. I also reviewed the benefit of consistent device use of CPAP for hypertension, arrhythmia and diabetes. 2. Obesity, unspecified. Currently patients BMI is 35.3. Obesity increases the risk of apnea, CPAP pressure requirements and overall health risks especially cardiovascular and diabetes. Thus patient is advised to lose weight. * Continue auto CPAP pressure at 7-16 cmH2O * Update supply prescription * Notify me if snoring with mask or feeling that the pressure is too much or too little * Attempt to lose weight * Call this office if any problems using CPAP * Return for follow up in 12 months, or sooner if concerns arise Counseling Topics: Spare mask, Weight loss health impact Prescriptions: Device supplies Follow up with Sleep Care in: 1 year Visit Type: In Office Time Spent with Patient (minutes): 21 Provider Statement: I spent 100% of the Face to Face Visit with the patient with greater than 50% spent counseling the patient and coordination of care.
== END 2023-11-25 13:48 | disposition home or self-care (01) ==
LOC: SC 13:47
PROVIDERS: ATTEND Nurse Practitioner Family
DX: G47.33 Obstructive sleep apnea (adult) (pediatric) (principal); E66.9 Obesity, unspecified; Z68.35 Body mass index [BMI] 35.0-35.9, adult
CPT/HCPCS: 99212; 99213

== ENCOUNTER 2023-12-10 15:07 | Outpatient (CLI) | payer MEDICAID ==
--- NOTE | 2023-12-10 17:00 | Ultrasound Report ---
PROCEDURE: Pelvic w/Transvaginal INDICATIONS: ABN VAG BLEED TECHNIQUE: Real-time scanning was performed of the pelvic organs, with image documentation. Additional endovagi nal scanning was necessary due to incomplete visualization of the adnexal and endometrial structures by transabdominal scanning. COMPARISON: None. FINDINGS: Uterus: Uterus is retroverted and normal in size at 6.2 x 3.1 x 4.2 cm. The myometrium is homogeneo us. The endometrium measures 6 mm in combined thickness. Ovaries: Not seen due to overlying bowel gas and presumed atrophy. Other: No pathologic free abdominal or pelvic fluid. IMPRESSION: Endometrial stripe measures 6 mm, abnormal in the setting of postmenopausal bleeding. Consider tissue sampling. Reviewed by: Turner Galloway MD on 12/10/2023 4:59 PM PST Approved by: Turner Galloway MD on 12/10/2023 4:59 PM PST Station ID: [id number]
== END 2023-12-10 15:08 | disposition home or self-care (01) ==
LOC: DI 15:07
PROVIDERS: ATTEND Nurse Practitioner Family
DX: R93.89 Abnormal findings on diagnostic imaging of other specified body structures (principal); N93.9 Abnormal uterine and vaginal bleeding, unspecified; Z78.0 Asymptomatic menopausal state; Z79.01 Long term (current) use of anticoagulants

== ENCOUNTER 2023-12-31 08:00 | Outpatient (CLI) | payer MEDICAID ==
--- NOTE | 2024-01-01 06:40 | XRAY Report ---
PROCEDURE: Knee 1 View BILAT INDICATIONS: BILAT KNEE PAIN PA TUNNEL VIEW ONLY TECHNIQUE: 1 standing view of the knee(s) were acquired. COMPARISON: 3 views of both knees, not including a standing view dated 10/14/2023. FINDINGS: Bones: No fractures or dislocations on a single frontal view. No suspicious bony lesions. With comp arison of the prior study, tricompartment osteoarthritis is again noted, most significantly on the ri ght. There is moderate medial compartment joint space loss on the right. Medial and lateral joint spa sandie are relatively well-preserved on the left. Soft tissues: No knee joint effusion. No suspicious soft tissue calcifications or masses. IMPRESSION: Bilateral degenerative arthritis. On the right, there is moderate medial compartment joint space loss . Reviewed by: Anastacio Grady MD on 01/01/2024 6:38 AM PDT Approved by: Anastacio Grady MD on 01/01/2024 6:38 AM PDT Station ID: [id number]
== END 2023-12-31 23:59 | disposition home or self-care (01) ==
LOC: DI.WOS 08:00
PROVIDERS: ATTEND Physician Assistant Surgical
DX: M17.0 Bilateral primary osteoarthritis of knee (principal)

== ENCOUNTER 2024-02-13 10:57 | Outpatient (CLI) | payer MEDICAID ==
--- NOTE | 2024-02-14 07:17 | XRAY Report ---
PROCEDURE: Chest 2V INDICATIONS: COUGH TECHNIQUE: 2 views of the chest were acquired. COMPARISON: 08/11/2020 FINDINGS: Surgical changes and devices: None. Lungs and pleura: Mild peribronchial cuffing. No dense airspace disease or pleural effusions. Mediastinum: Heart and mediastinal contours are unchanged. Heart size is within normal limits Bones and chest wall: Degenerative changes. IMPRESSION: Mild bronchial cuffing could represent atypical/viral infection. No airspace disease or pleural effus ions. Reviewed by: Jonathan Mckoy MD on 02/14/2024 7:15 AM PDT Approved by: Jonathan Mckoy MD on 02/14/2024 7:15 AM PDT Station ID: [id number]
== END 2024-02-13 10:58 | disposition home or self-care (01) ==
LOC: DI 10:57
PROVIDERS: ATTEND Family Medicine
DX: R05.9 Cough, unspecified (principal)

== ENCOUNTER 2024-05-23 14:03 | Outpatient (CLI) | payer MEDICAID ==
[2024-05-23 18:05] LABS: BASOPHILS # (AUTO) 0.1 10^3/uL (0.0-0.1); BASOPHILS % (AUTO) 0.8 %; EOSINOPHILS # (AUTO) 0.1 10^3/uL (0.0-0.7); EOSINOPHILS % (AUTO) 1.8 %; HCT - HEMATOCRIT 39.5 % (37.0-47.0); HGB - HEMOGLOBIN 12.7 g/dL (12.0-16.0); LYMPHOCYTES # (AUTO) 2.2 10^3/uL (1.5-3.5); LYMPHOCYTES % (AUTO) 35.7 %; MEAN CORPUSCULAR HEMOGLOBIN 28.7 pg (27.0-31.0); MEAN CORPUSCULAR HGB CONC 32.2 g/dL (32.0-36.0); MEAN CORPUSCULAR VOLUME 89.4 fL (81.0-99.0); MEAN PLATELET VOLUME 10.5 fL (7.9-10.8); MONOCYTES # (AUTO) 0.6 10^3/uL (0.0-1.0); MONOCYTES % (AUTO) 9.8 %; NEUTROPHILS # (AUTO) 3.2 10^3/uL (1.5-6.6); NEUTROPHILS % (AUTO) 51.6 %; PLT - PLATELET COUNT 298 10^3/uL (130-450); RED BLOOD COUNT 4.42 10^6/uL (4.20-5.40); RED CELL DISTRIBUTION WIDTH 13.4 % (12.0-15.0); WHITE BLOOD COUNT 6.2 x10^3/uL (4.8-10.8)
[2024-05-23 18:26] LABS: ALBUMIN/GLOBULIN RATIO 1.3 (1.0-2.2); ALKALINE PHOSPHATASE 112 IU/L (42-121); ALT ALANINE AMINOTRANSFERASE 15 IU/L (10-60); AST ASPARTATE AMINOTRANSFERASE 14 IU/L (10-42); BILIRUBIN,TOTAL 0.4 mg/dL (0.2-1.0); BUN - BLOOD UREA NITROGEN 12 mg/dL (6-20); CALCIUM 10.5 mg/dL (8.5-10.3); CARBON DIOXIDE - CO2 31 mmol/L (21-32); CHLORIDE 106 mmol/L (101-111); CHOL/HDL RATIO 3.6 (<4.4); CHOLESTEROL 130 mg/dL; CREATININE 0.7 mg/dL (0.6-1.3); GFR - MDRD 85 (>89); GLUCOSE 144 mg/dL (74-104); HDL CHOLESTEROL 36 mg/dL; LDL CHOLESTEROL,CALCULATED 58 mg/dL; LDL/HDL RATIO 1.6 (<4.4); POTASSIUM 4.2 mmol/L (3.5-4.5); SODIUM 141 mmol/L (135-145); TOTAL PROTEIN 7.2 g/dL (6.4-8.9); TRIGLYCERIDES 182 mg/dL; VLDL CHOLESTEROL 36 mg/dL
[2024-05-23 18:28] LABS: CREATININE,URINE 130.6 mg/dL
[2024-05-23 18:32] LABS: MICROALBUMIN,URINE < 0.7 mg/dL
[2024-05-23 20:40] LABS: ESTIMATED AVERAGE GLUCOSE 169 mg/dL (70-100); HEMOGLOBIN A1c% 7.5 % (4.27-6.07)
== END 2024-05-23 14:04 | disposition home or self-care (01) ==
LOC: LAB.N 14:03
PROVIDERS: ATTEND Nurse Practitioner Family
DX: E11.9 Type 2 diabetes mellitus without complications (principal); I10 Essential (primary) hypertension; E78.5 Hyperlipidemia, unspecified
CPT/HCPCS: 36415; 80053; 80061; 82043; 82570; 83036; 83721; 85025